=== PATIENT | male | born 1990 | race Caucasian/White ===

== ENCOUNTER 2024-04-26 15:34 | Emergency (ER) | payer SELFPAY ==
[2024-04-26 15:35] VITALS: BMI 27.4
[2024-04-26 15:46] VITALS: BP 154/95
[2024-04-26 16:06] LABS: % Basophils 0.6 % (0-2); % Eosinophils 4.3 % (0-6); % Immature Granulocytes 0.1 % (0-0.5); % Lymphocytes 34.2 % (20.5-51.1); % Monocytes 7.5 % (1.7-9.3); % Neutrophils 53.3 % (42.2-75.2); Absolute Eosinophils 0.3 10^3/uL (0-0.7); Absolute Lymphocytes 2.5 10^3/uL (1.2-3.4); Absolute Monocytes 0.5 10^3/uL (0.1-0.6); Absolute Neutrophils 3.8 10^3/uL (1.4-6.5); Hematocrit 42.2 % (39.0-52.0); Hemoglobin 15.4 g/dL (13.0-18.0); Mean Corp Hgb Conc. 36.5 g/dL (33.0-37.0); Mean Corpuscular Volume 84.9 fL (80.0-94.0); Mean Platelet Volume 9.7 fL (7.4-10.4); Nucleated Red Blood Cells % 0 % (-); Platelet Count 301 10^3/uL (130-400); Red Blood Cell Count 4.97 10^6/uL (4.70-6.10); Red Cell Dist. Width 12.5 % (11.5-14.5); White Blood Cell Count 7.2 10^3/uL (4.8-10.8)
[2024-04-26 16:19] LABS: ALT (SGPT) 58 U/L (0-50); AST (SGOT) 41 U/L (17-59); Albumin 4.8 g/dl (3.5-5.0); Alkaline Phosphatase 79 U/L (38-126); Blood Urea Nitrogen 15 mg/dl (9-20); Calcium 9.3 mg/dl (8.4-10.2); Carbon Dioxide 24 mmol/L (22-30); Chloride 102 mmol/L (98-107); Glucose 108 mg/dl (70-99); Potassium 3.9 mmol/L (3.5-5.1); Sodium 136 mmol/L (135-145); Total Bilirubin 0.6 mg/dl (0.2-1.3); Total Protein 7.7 g/dl (6.3-8.2); eGFR > 60.00
[2024-04-26 16:31] LABS: Troponin I < 0.012 ng/ml
--- NOTE | 2024-04-26 20:31 | ED.GENMED ---
History of Present Illness
General
Chief Complaint: Chest Pain
Source: patient
Time Seen by Provider: 04/26/24 20:22
History of Present Illness
History of Present Illness:
This patient is a 33-year-old male who is states that he has had constant chest discomfort 'under my pack' described as 'tight', gradual in onset, that started 2 days ago. He notes a family history of coronary disease after the age of 50 and he
wanted to get 'checked out to make sure'. He denies associated dyspnea, fever, chills, nausea, vomiting, calf swelling, recent immobilization, recent trauma, family or personal history of clotting disorder. He notes that the pain sometimes is
noted in the left scapular area as well. It does not radiate from the chest through to the back is not ripping or tearing quality, and is mild in intensity. He says that 'on and off' he has noted a vague numbness/tingling in the left bicep area
which is now resolved. Despite triage note, patient clarifies that chest discomfort has been present for the past 2 days not the past few hours, and he denies any trouble taking a deep breath. Taking a deep breath does not enhance the pain.
Past History
Past History
ED Past Medical History: None
ED Past Surgical History: None
Social History
Tobacco: Vaping
Alcohol: Occasional
Drug: None
Personal: Single
Living: alone
Employment: Employed
Phy Exam
Physical Exam
Physical Exam:
GENERAL: Alert , in no apparent distress
EYE: pupils equal and reactive
NECK: Supple, no significant adenopathy.
ENT: o/p clr, mmm.
CARDIAC: Regular rate and rhythm .
LUNGS: Clear breath sounds bilaterally, no acute respiratory distress, no wheezes/rales/rhonchi
ABDOMEN: Soft, without focal tenderness, no r/g, no cvat
NEUROLOGICAL: Alert and oriented, no focal neuro deficits
SKIN: Warm and dry, skin intact.
MUSCULOSKELETAL: No edema, well perfused.
PSYCH: Normal and appropriate interaction.
Scores
Heart Score for Chest Pain Patients
STEMI patient?: Not applicable
PERC Rule Criteria
Age <50 years: Yes
HR <100 bpm: Yes
Room air oxygen sat >94%: Yes
History of DVT or PE: No
Recent trauma or surgery: No
Hemoptysis: No
Exogenous estrogen: No
Clinical signs suggestive of DVT: No
: No
Considered low risk for PE: Yes
PERC Score: 0
PE can be excluded by PERC: Yes
Course
Orders/Labs/Results
Orders:
Orders
04/26/24 15:37
ECG [Electrocardiogram (*1)] Urgent
Reason for Study: Chest Pain
EKG- Treatment ONCE
04/26/24 15:54
Complete Blood Count/With Diff Urgent
Comprehensive Metabolic Panel Urgent
Troponin I Urgent
04/26/24 20:31
CR Chest - 2 Views Urgent
Comment:
Reason For Exam: L cp
Abnormal Lab Results
04/26/24
15:54
Glucose 108 H mg/dl
(70-99)
ALT 58 H U/L
(0-50)
04/26/24 15:54
04/26/24 15:54
Vital Signs
Initial and Last Documented VS:
Initial Vital Signs
Temp Pulse Resp BP Pulse Ox
97.9 F 86 18 154/95 99
04/26/24 15:46 04/26/24 15:46 04/26/24 15:46 04/26/24 15:46 04/26/24 15:46
Last Documented Vital Signs
Temp Pulse Resp BP Pulse Ox
97.9 F 67 20 134/92 97
04/26/24 15:46 04/26/24 20:35 04/26/24 20:35 04/26/24 20:34 04/26/24 20:35
*Critical Care Note
Total Time (30-74mins, 75-104mins- exclusive of procedures): Not Applicable
Update Note
Update Note:
Patient presents to the Emergency Department with ____cp
Number and Complexity of Problems Addressed at the Encounter
� Chronic conditions affecting care:
� Acute Exacerbation and/or Progression of Chronic Illness:
� Differential Diagnosis includes:but not limited to acs, ptx, pe, pna, pleurisy, msk, etc.
Amount and/or Complexity of Data to be Reviewed and Analyzed
� I performed an independent evaluation of and my interpretation is:
EKG:read by me, nsr, incomlete RBBB, no acute changes
CT:
Xrays:cxr read by me nad
Laboratory Studies:wnl
Other:
� Review of other/old records reveals:
� Clinical information was obtained by an independent historian:
� Prescriptions/Medications Considered but not given:
� Further testing considered but not performed:
Risk of Complications and/or Morbidity or Mortality of Patient Management
� Social determinants of health affecting care:
� Discussion with other providers (PCP, Hospitalists, Consultants, etc):
� Escalation of care including admission/observation vs risk of discharge considered: Will check cxr to exclude low possibility of ptx, etc. Clinically doubt PE given not pleuritic, no vital sign abnl, no sob, etc etc.
CXR wnl. Strongly doubt acs, pe, dissection, etc etc given hx, phys etc. D/w pt import of f/u and reasons to rted.
ED Attending Note
-
Portions of this chart may have been created with voice recognition software.� Occasional wrong word or��sound alike� substitutions may have occurred due to the inherent limitations of voice recognition software.
Discharge Plan
Departure
Patient Disposition: Home (Routine Discharge)
Date of Disposition: 04/26/24
Time of Disposition: 21:17
Patient with high blood pressure during this ER visit?: Yes
Condition: Good
Discharge Problem:
Chest pain
Instructions: Chest Pain PCP Follow Up, BLOOD PRESSURE
Activity Restrictions/Additional Instructions:
IF YOU DEVELOP INCREASING/NEW PAIN, TROUBLE BREATHING, FEVER, VOMITING, DIZZINESS, OR OTHER WORRISOME SIGNS, GO TO THE ER IMMEDIATELY!
Interventions
Interventions:
*Risk Screen - Suicide Last Done: 04/26/24 15:46
*General Assessment Last Done: 04/26/24 20:37
*ED COVID-19 Vaccine History Last Done: 04/26/24 20:37
ED- Cardiac Assessment Last Done: 04/26/24 20:38
Discharge Date and Time
Print Language: [id number]
[2024-04-26 20:34] VITALS: BP 134/92
== END 2024-04-26 21:51 | disposition home or self-care (01) ==
LOC: EMR 15:34
PROVIDERS: Emergency Medicine; EMERGENCY PHYSICIAN Emergency Medicine
DX: R07.89 Other chest pain (principal); R03.0 Elevated blood-pressure reading, without diagnosis of hypertension; F17.290 Nicotine dependence, other tobacco product, uncomplicated
CPT/HCPCS: 99285; 71046; 80053; 84484; 85025; 93005